=== PATIENT | male | born 1955 | race Caucasian/White ===

== ENCOUNTER → 2018-11-09 | Outpatient (CLI) | payer BC ==
[2018-11-09 10:41] LABS: INTERNATIONAL RATION (INR) 1.95; PROTHROMBIN TIME 23.2 SEC (11.4-15.4)
== END ==
LOC: LAB 10:24
PROVIDERS: ATTEND Internal Medicine Gastroenterology
DX: Z79.899 Other long term (current) drug therapy (principal)
CPT/HCPCS: 36415; 85610

== ENCOUNTER 2018-11-19 15:08 | Emergency (ER) | payer BC ==
[2018-11-19 15:15] VITALS: BP 137/85
--- NOTE | 2018-11-19 15:52 | ER Document Report ---
HPI - HPI Patient complains to provider of: Abscess Time Seen by Provider: 11/19/18 15:50 Onset/Duration: Worse Quality of pain: Achy Pain Level: 4 Context: Patient states he has had a cyst to his left upper back area for over 40 years. Patient states that over the past week the area has become red swollen and painful. Patient denies any fever. Patient does have a history of diabetes. Associated Symptoms: denies: Fever Exacerbated by: Movement Relieved by: Denies Similar symptoms previously: No Recently seen / treated by doctor: No - ROS ROS below otherwise negative: Yes Systems Reviewed and Negative: Yes All other systems reviewed and negative - CONSTITUTIONAL Constitutional: DENIES: Fever, Chills - MUSCULOSKELETAL Musculoskeletal: REPORTS: Back Pain - DERM Skin Color: Erythema Notes: Abscess Past Medical History - General Information source: Patient - Social History Smoking Status: Never Smoker Frequency of alcohol use: Occasional Drug Abuse: None Occupation: None Family History: Reviewed & Not Pertinent - Past Medical History Cardiac Medical History: Reports: Hx Atrial Fibrillation, Hx Hypercho lesterolemia, Hx Hypertension, Hx Heart Murmur Pulmonary Medical History: Reports: Hx Pneumonia Endocrine Medical History: Reports: Hx Diabetes Mellitus Type 2 Renal/ Medical History: Reports: Hx Kidney Stones - 04/2011 GI Medical History: Reports: Hx Ulcer - bleeding Past Surgical History: Reports: Hx Cardiac Surgery - artificial aortic valve, Hx Umbilical Hernia - Immunizations Hx Diphtheria, Pertussis, Tetanus Vaccination: Yes - 2006 Hx Pneumococcal Vaccination: 06/11/08 Vertical Provider Document - CONSTITUTIONAL Agree With Documented VS: Yes Exam Limitations: No Limitations General Appearance: WD/WN, No Apparent Distress - INFECTION CONTROL TRAVEL OUTSIDE OF THE [place] IN LAST 30 DAYS: No - HEENT HEENT: Atraumatic, Normocephalic - NECK Neck: Normal Inspection - RESPIRATORY Respiratory: No Respiratory Distress - BACK Back: Abnormal Inspection - Abscess to left trapezius area - MUSCULOSKELETAL/EXTREMETIES Musculoskeletal/Extremeties: PJ MUNROE - NEURO Level of Consciousness: Awake, Alert, Appropriate Motor/Sensory: No Motor Deficit - DERM Integumentary: Warm, Dry, Abscess - Large abscess to left trapezius area Course - Vital Signs Vital signs: Temp Pulse Resp BP Pulse Ox 98.5 F 101 H 20 137/85 H 97 11/19/18 15:13 11/19/18 15:13 11/19/18 15:13 11/19/18 15:13 11/19/18 15:13 - Laboratory Laboratory results interpreted by me: 11/19/18 17:21 Labs- Entire Visit 11/19/18 16:20 PT 25.8 H INR 2.23 Procedures - Incision and Drainage Left Back Type: Simple Anesthetic type: 1% Lidocaine mL's of anesthetic: 2 I&D procedure: Betadine prep applied Incision Method: Incision made by scalpel Amount/type of drainage: Large amount of purulent drainage from abscess Adult Front & Back picture: 1 - Abscess Discharge - Discharge Clinical Impression: Abscess, Encounter for incision and drainage procedure Cellulitis Qualifiers: Site of cellulitis: trunk Site of cellulitis of trunk: back Qualified Code(s): L03.312 - Cellulitis of back [any part except buttock] Condition: Stable Disposition: HOME, SELF-CARE Instructions: Abscess ([facility]), Cellulitis ([facility]), Cephalexin ([facility]), Post Incision and Drainage Additional Instructions: Return immediately for any new or worsening symptoms Followup with your primary care provider, call tomorrow to make a followup appointment Your antibiotic can cause your INR to increase. You should call your primary doctor tomorrow to see when he would like to recheck your INR, they can also recheck your wound at that time. You may need to have your INR checked more f requently while taking this medication. Or your doctor may want to alter your dose of your warfarin. Prescriptions: Cephalexin Monohydrate [Keflex 500 mg Capsule] 500 mg PO Q6H 5 Days capsule Hydrocodone/Acetaminophen [Leiter 5-325 mg Tablet] 1 tab PO Q6 PRN #8 tablet PRN Reason: Referrals: TOBIAS SIEGEL DO [NO LOCAL MD] - Follow up tomorrow
[2018-11-19 16:43] LABS: INTERNATIONAL RATION (INR) 2.23; PROTHROMBIN TIME 25.8 SEC (11.4-15.4)
== END 2018-11-19 17:55 | disposition home or self-care (01) ==
LOC: ER 15:08
DX: L03.312 Cellulitis of back [any part except buttock and flank] (principal); I48.91 Unspecified atrial fibrillation; E78.00 Pure hypercholesterolemia, unspecified; I10 Essential (primary) hypertension; Z87.442 Personal history of urinary calculi; Z95.2 Presence of prosthetic heart valve
CPT/HCPCS: 36415; 85610; 99283